=== PATIENT | female | born 1955 | race Two or more races ===

== ENCOUNTER 2019-11-04 10:16 | Emergency (ER) | payer MEDICARE, MEDICAID ==
[~2019-11-04] VITALS: Ht 149.9 cm; Wt 56.0 kg
[2019-11-04] MEDS ORDERED: LIDOCAINE 5% PATCH TOP STA (10:44)
[2019-11-04] MEDS ORDERED: ACETAMINOPHEN 500MG TABLET PO ONE (10:45)
[2019-11-04 11:09] VITALS: BP 152/88
== END 2019-11-04 13:33 | disposition home or self-care (01) ==
LOC: ER 10:16
DX: M54.5 Low back pain (principal); W01.0XXA Fall on same level from slipping, tripping and stumbling without subsequent striking against object, initial encounter; Y93.89 Activity, other specified; Y92.89 Other specified places as the place of occurrence of the external cause; Y99.8 Other external cause status
CPT/HCPCS: 72100; 73522; 99283

== ENCOUNTER 2021-04-11 17:55 | Emergency (ER) | payer MEDICARE, MEDICAID ==
[~2021-04-11] VITALS: Ht 157.5 cm; Wt 65.0 kg
[2021-04-11 19:50] VITALS: BP 118/77
== END 2021-04-11 20:18 | disposition home or self-care (01) ==
LOC: ER 17:55
DX: R23.4 Changes in skin texture (principal); R42 Dizziness and giddiness; I10 Essential (primary) hypertension; G30.9 Alzheimer's disease, unspecified; F02.80 Dementia in other diseases classified elsewhere, unspecified severity, without behavioral disturbance, psychotic disturbance, mood disturbance, and anxiety
CPT/HCPCS: 99281